=== PATIENT | female | born 1985 | race Caucasian/White ===

== ENCOUNTER 2017-07-01 19:51 | Emergency (ER) | payer SELFPAY ==
[2017-07-01] MEDS: LORAZEPAM 2 MG INJ IM (21:04)
== END 2017-07-01 23:30 | disposition home or self-care (01) ==
LOC: E/R 23:30
DX: T50.901A Poisoning by unspecified drugs, medicaments and biological substances, accidental (unintentional), initial encounter (principal); F19.10 Other psychoactive substance abuse, uncomplicated
CPT/HCPCS: 96372; 99284-25